=== PATIENT | female | born 1995 | race Hispanic/Latino ===

== ENCOUNTER 2025-04-10 10:43 | Outpatient (CLI) | payer OTHER, SELFPAY ==
--- OUTSIDE RECORDS SUMMARY | 2025-04-10 10:59 | XMS_ITS | Clinical Summary ---
Author Organization [facility] Address [address] [facility] [place] [address] Care Team Providers Care Mica Builder Name Role Phone Ramana Ponce Primary Care Provider Dany short Source Comments [facility],non-owned Affiliates and Associated Physician Practices is amultiple site organization consisting of ambulatory clinics and hospital sitesin [place], [place], [place] and [place]. This disclosure is being madepursuant to the Care Everywhere program and may not contain all information available regarding this patient. Last updated 18.[facility] Allergies No known active allergies Medications * Be aware that medications may not be up to date on this document. Alwaysverify current medications with the patient. No known medications Social History Tobacco Use Types Packs/Day Years Used Date Smoking Tobacco: Never Assessed Comments Unknown Sex and Gender Information Value Date Recorded Sex Assigned at Not on file Legal Sex Female 12:43 PM PATROL POLICE SERGEANT Gender Identity Not on file Sexual Orientation Not on file Last Filed Vital Signs Vital Sign Reading Time Taken Comments Blood Pressure 112/70 08/05/2011 9:59 AM PATROL POLICE SERGEANT Pulse 80 08/05/2011 9:59 AM PATROL POLICE SERGEANT Temperature - - Respiratory Rate 24 08/05/2011 9:59 AM PATROL POLICE SERGEANT Oxygen Saturation 100% 08/05/2011 9:59 AM PATROL POLICE SERGEANT Inhaled Oxygen Concentration - - Weight 61.8 kg (136 lb 3.9 oz) 08/05/2011 9:59 A M PATROL POLICE SERGEANT Height 152.5 cm (5' 0.04) 08/05/2011 9:59 AM CS T Body Mass Index 26.57 08/05/2011 9:59 AM PATROL POLICE SERGEANT Plan of Treatment Health Maintenance Due Date Last Done Comments HIV SCREENING 2011 HEPATITIS C SCREENING 08/24/2014 DTAP/TDAP/TD VACCINES (1 - Tdap) 2015 HEPATITIS B VACCINE (1 of 3 - 19+ 3-dose series) 2015 HPV VACCINE (1 - 3-dose SCDM series) 2023 COVID-19 VACCINE (1 - 2023-2 5 season) 2024 DEPRESSION SCREENING 09/27/2024 INFLUENZA VACCINE (#1) 2025 ZOSTER VACCINE (1 of 2) 2046 HIB VACCINE Aged Out No longer eligi ble based on patient's age to complete this topic MENINGOCOCCAL (Group B) VACC INE SHARED DECISION-MAKING Aged Out No longer eligibl e based on patient's age to complete this topic MENINGOCOCCAL GROUPS A/C/Y/W VACCINE Aged Out No longer eligible b ased on patient's age to complete this topic PNEUMOCOCCAL VACCINE Aged Out No long er eligible based on patient's age to complete this topic Care Teams Mica Builder Relationship Specialty Start Date End Date Ramana Ponce license in 2017 PCP - General 08/05/11
--- OUTSIDE RECORDS SUMMARY | 2025-04-10 10:59 | XMS_ITS | Referral Summary ---
Author Organization [facility] Address [address] [place] [id number] Care Team Providers Care Railroad Car Loader Name Role Phone Gabriella Collins NP Primary Care Provider [phone] Allergies No known active allergies Medications drospirenone-ethin yl estradioL (Susan, Obdulio,) 3-0.02 mg per tabletIndications: Encounter for initial prescription of contraceptive pills Take 1 tablet by mouth daily 84 tablet 4 4 Active Active Problems Problem Noted Date Diagnosed Date Sore throat 06/01/2024 Overview (06/01/2024): COVID and flu were negative. Stop antibiotics as strep is negative. Start prednisone taper. Have lab work completed. Throat culture collected BMI 28.0-28.9,adult 07/02/2022 Assessment & Plan (07/02/2022 3:56 PM CDT): Weight/BMI is in healthy range. Continue healthy lifestyle to maintain. Screening for STD (sexually transmitted disease) 07/02/2022 Flu vaccine need 07/02/2022 Abdominal pain 10/22/2021 Elevated LFTs 10/22/2021 Functional diarrhea 10/22/2021 Overview (10/22/2021): Take Cipro 500 mg twice daily as directed. Use referral to follow-up with Gastroenterology. Have lab work completed. We will notify you of the results Resolved Problems Problem Noted Date Diagnosed Date Resolved Date BMI 25.0-25.9,adult 10/22/2021 07/02/20 22 Immunizations Immunization Administration Dates Next Due DTaP 11/18/2000, 9,11/08/1997,03/12,01/10/1997 HPV, Quadrivalent 07/04/2007,02/28/2007,12/29/19 07 Hep A, Ped Unspecified 12/28/2006 Hep A, Unspecified 03/02/2008 Hep B, Adolescent or Pediatric 05/16/2004,2003 Hep B, Unspecified 01/25/2004 IPV 11/23/1997, 8,03/12/1997,01/10 Influenza, Quadrivalent, Spl it, Preservative Free, Intramuscular 07/02/2022,07/06/2013 Influenza, Unspecified 01/25/2024(Deferr ed: Patient Refused),10/05/2023(Deferred: Patient Refused),09/28/2023(Deferred: Patient Refused),09/27/2023(Deferred: Patient Refused),09/27/2022(Deferred: Patient Refused),09/27/2022(Deferred: Patient Refused),09/27/2022(Deferred: Patient Refused),10/22/2021(Deferred: Patient Refused) MMR 11/28/2003,07/26/2003 Meningococcal C Conjugate 02/28/2007 Meningococcal MCV4P (Menactra) 07/06/2013 Pfizer SARS-CoV-2 Monovalent Vaccination (12+ Yrs) PURPLE 11/06/2020,10/16/2020 Polio, Unspecified 02/20/1998 Tdap 02/28/2007 Varicella 12/25/2003 Social History Tobacco Use Types Packs/Day Years Used Date Smoking Tobacco: Never Smokeless Tobacco: Never Tobacco Cessation:Counseling Given: Not Answered AUDIT-C Answer Date Recorded Q1: How often do you have a drink containing alc ohol? Never 11/26/2021 Average Number of Drinks Not on file 022 Q3: How often do you have si x or more drinks on one occasion? Never 11/26/2021 PHQ-2 Answer Date Recorded PHQ-2 Total Score (If total score is 3 or more points, staff should administer the PHQ-9) 0 06/01/2024 Comments Unknown Sex and Gender Information Value Date Recorded Sex Assigned at Not on file Legal Sex Female 3:02 PM CDT Gender Identity Female 10/20/2021 1:14 PM SPOOL CLEANER HAND Sexual Orientation Straight 10/20/2021 1: 14 PM SPOOL CLEANER HAND Last Filed Vital Signs Vital Sign Reading Time Taken Comments Blood Pressure 102/80 05/30/2024 9:15 AM CDT Pulse 97 06/01/2024 10:39 AM CDT Temperature 37.6 C (99.6 F) 06/01/2024 10:39 AM CDT after motrin and tylenol Respiratory Rate 18 11/26/2021 4:09 PM SPOOL CLEANER HAND Oxygen Saturation 98% 06/01/2024 10: 39 AM CDT Inhaled Oxygen Concentration - - Weight 65.8 kg (145 lb) 06/01/2024 10:3 9 AM CDT Height 152.4 cm (5') 06/01/2024 10:39 AM CDT Body Mass Index 28.32 06/01/2024 10:39 AM CDT Plan of Treatment Not on file Procedures Procedure Name Priority Date/Time Associated Diagnosis Comments HEPATITIS PANEL, ACUTE Routine 06/01/2024 12:21 PM CDT Screening for STD (sexually transmitted disease) PAP, REFLEX HPV Routine 09/28/2023 8:46 AM SPOOL CLEANER HAND Encounter for well woman exam with routine gynecological exam from Last 3 Months or Most Recently Relevant to Health Maintenance Results * Hepatitis panel, acute Blood (06/01/2024 12:21 PM CDT) Hep A IgM NON-REACTI VE NON-REACT [facility] Comment: For additional information, please refer to http://education.HomeShop18.[employer]/faq/ETJ411 (This link is being provided for informational/ educational purposes only.) HepBsAg NON-REACTI VE NON-REACT [facility] Comment: For additional information, please refer to http://education.Home[employer]/faq/GPE723 (This link is being provided for informational/ educational purposes only.) Hep B core IgM NON-REACTI VE NON-REACT [facility] Comment: For additional information, please refer to http://education.Newlans/faq/CTC197 (This link is being provided for informational/ educational purposes only.) Hep C Ab NON-REACTI VE NON-REACT [facility] Comment: HCV antibody was non-reactive. There is no laboratory evidence of HCV infection. In most cases, no further action is required. However, if recent HCV exposure is suspected, a test for HCV RNA (test code 74845) is suggested. For additional information please refer to http://Vigoda.[employer]/faq/GKN27i8 (This link is being provided for informational/ educational purposes only.) Blood 06/01/2024 12:2 1 PM CDT 06/01/2024 12:24 PM CDT Narrative [facility] - 06/05/2024 10:48 AM CDT FASTING:NO FASTING: NO Gabriella Collins WORKERS' COMPENSATION MAGISTRATE LAB MICROBIOLOGY - GENERAL OR DERABLES Final Result [facility] [address] [place] [address] * Pap, reflex HPV (09/28/2023 8:46 AM SPOOL CLEANER HAND) CLINICAL INFORMATION: Wilda Williamson Comment:CERVICAL CANCER SCRE ENING LMP Wilda Williamson Comment:09/17/23 Previous Pap Wilda Williamson Comment:09/17/2023 Prev. Bx Wilda Williamson Comment:NONE GIVEN SOURCE: Wilda Williamson Comment:Cervix, Endocervix Pap, specimen adequacy Wilda Williamson Comment: Satisfactory for evaluation. Endocervical/transformation zone component absent. HPV interp Wilda Williamson Comment: Cytology Results: Negative for intraepithelial lesion or malignancy. COMMENTS Wilda Williamson Comment: This Pap test has been evaluated with computer assisted technology. Dust Collector Attendant Korey Gonzalez Comment: PCM, CT(ASCP) CT Screening Location: [facility] Administration DENISHA [facility] Review policy director Wilda Williamson Comment: GAYE BAPTISTE(ASCP) CT Screening location: [place] [address] [address] [place] [address] Comment Wilda Williamson Comment: EXPLANATORY NOTE: The Pap is a screening test for cervical cancer. It is not a diagnostic test and is subject to false negative and false positive results. It is most reliable when a satisfactory sample, regularly obtained, is submitted with relevant clinical findings and history, and when the Pap result is evaluated along with historic and current clinical information. Thin prep 09/28/2023 8:46 AM SPOOL CLEANER HAND 09/29/2023 6:21 AM SPOOL CLEANER HAND us Gabriella Collins NP LAB CYTOLOGY ORDERABLES Final Result [facility] [address] [address] [place] [place] [phone] from Last 3 Months or Most Recently Relevant to Health Maintenance Insurance * Guarantor: Radha Whyte Account Type Relation to Patient Date of Phone Billing Address Personal/Family Self 1995 [address] [place] [address] [facility] * Guarantor: Radha Whyte Account Type Relation to Patient Date of Phone Billing Address Personal/Family Self 1995 [address] [place] [address] [facility] Care Teams Railroad Car Loader Relationship Specialty Start Date End Date Gabriella Collins NP PCP - General Internal Medicine 10/17/21
--- OUTSIDE RECORDS SUMMARY | 2025-04-10 10:59 | XMS_ITS | Continuity of Care Document ---
Author Organization [facility] Address [address] [place] [address] Phone Care Team Providers Care Crusher And Binder Operator Name Role Phone Rudy Vargas MD Unavailable Unavailable Allergies, Adverse Reactions, Alerts Substance Reaction Status Criticality No Known Allergies Active No Inform ation Medications Medication Instructions Dosage Effective Dates (start - stop) Status Comments terbinafine HCl 250 mg tablet take 1 tablet by oral route every day 250 MG - Active Procedures Procedure Date OFFICE/OUTPATIENT VISIT, [facility] PREV VISIT, [facility], AGE 18-39 OFFICE/OUTPATIENT VISIT, [facility] Advance Directives Directive Yes / No Effective Date File Name No Information Encounters Encounter Description Practice Location Reason(s) For Visit Diagnoses Date Provider Providers Copied on Encounter OFFICE/OUTPA TIENT VISIT, [facility], [address] [place] [place], [id number], [place] tel:[phone] [facility] nail fungus1 (chief complaint) hemautria1 (chief complaint) wbc (chief complaint) ear pain (chief complaint) insomnia1 (chief complaint) Dermatophytic onychiaLeukocytosis HematuriaFatiguePar esthesia of skin [address] [facility] [facility] [place], [id number] , [place]. tel:[phone] Referring Provider: Rudy Vargas [address] [facility] [place], [place], [id number]. tel:[phone] PREV VISIT, NEW, AGE 18-39 [facility], [address] [place], [id number], tel:[phone] [facility] Family Medicine Physical (chief complaint) Encounter for general adult medical exam w abnormal findingsParesthesia of skinFatigueDermatop hytic onychia [address]. [address], [place], [place], [id number] , [place]. tel:[phone] Referring Provider: Rudy Vargas [address], [place], [place], [id number]. tel:[phone] Family History Family Member Type Diagnosis Age At Onset Father Problem (finding) Alive and well Mother Problem (finding) Diabetes mellitus type 2 Brother Problem (finding) Alive and well Payers Payer name Insurance type Covered democrat ID Authoriza tion(s) No Information Social History Type Description Quantity Date Captured Comments Alcohol Use Details No Caffeine Use Details Unknown Tobacco Use Status Current non-smoker 19 Smoking Status Never smoker Non-Smoking Tobacco Use Details : No Details Available : No Details Available Sex Female Vital Signs Date / Time: Height Weight BMI Pulse Rate Blood Pressure Temperature Respiratory Rate Body Surface Area Head Circumference BMI percentile Pulse Ox Inhaled Ox 10:17 AM 61.00 in 174.20 lbs 32.9 1 kg/m eter (2) 43 /min 133/71 mm[Hg] 96.2 F 16 /min Chief Complaint And Reason For Visit From encounter dated '06/09/2019 10:15'. nail fungus1 (chief complaint). Description: Pt has left big toenail fungus for years. Pt denies any toe pain pt wants to be treated hemautria1 (chief complaint). Description: Pt has mild hematuria. Pt denies any UTI symptoms wbc (chief complaint). Description: Pt has mildly high WBC. Pt denies any recurrent fever or infection ear pain (chief complaint). Description: Additional information: Pt just returned from trip and shedid flew. Pt notices popping both ears with some sinus pressure Pt denies harin gloss. insomnia1 (chief complaint). Description: Pt states that insomnia and lower extremity paresthesia resolved. Pt did not try vistaril Plan Of Treatment Date Type Action Status Goal Special diet education compl eted Goal Special diet education compl eted History Of Present Illness Encounter Date Complaint History Of Prese nt Illness ear pain Additional infor mation: Pt just returned from trip and she did flew. Pt notices popping both ears with some sinus pressure Pt denies harin gloss. insomnia1 Pt states that i nsomnia and lower extremity paresthesia resolved. Pt did not try vistaril wbc Pt has mildly hi gh WBC. Pt denies any recurrent fever or infection hemautria1 Pt has mild abbe turia. Pt denies any UTI symptoms nail fungus1 Pt has left big toenail fungus for years. Pt denies any toe pain pt wants to be treated Physical Pt needs annual physical. Pt c/o bilateral calf and feet tingling and numbness for 2 weeks. Pt denies any burning Pt denies any pain pt denies any back pain or any sciatica or any loss of bladder control. Pt denies any polyuria, polyuria. Pt feels very fatigue for 2-3 months, pt has severe insomnia x 2-3 months Pt denies any snoring or any trouble with breathing at night. Pt denies any morning fatigue. Pt just feels around mid of the day and she feels that she can fall asleep easily during the day, Pt denies any sob. Pt states that numbness both calf and lower extremity occurs randomly Instructions Date Instruction Additional Infor mation Special diet education Related t o Body mass index (BMI) 32.0-32.9, adult Increase physical activity Relat ed to Leukocytosis Weight management Related to Loraine kocytosis Special diet education Related t o Body mass index (BMI) 31.0-31.9, adult Assessments Type Assessment Date assessment Dermatophytic onychia 9 assessment Leukocytosis assessment Hematuria assessment Fatigue assessment Paresthesia of skin Mental Status Date Cognitive Assessment Orientation - [place] ed to time, place, person, situation.
--- OUTSIDE RECORDS SUMMARY | 2025-04-10 10:59 | XMS_ITS | Clinical Summary ---
Author Organization [facility] Address [address] [place] [phone] Care Team Providers Care Market Development Manager Name Role Phone Gabriella Collins NP Primary Care Provider [phone] Allergies No known active allergies Medications drospirenone-ethin [...] Polio, Unspecified 02/20/1998 Tdap 02/28/2007 Varicella 12/25/2003 Surgical History Surgery Date Site/Laterality Comments STOMACH SURGERY gastric sleeve in January 2021 in [place]. Family History Medical History Relation Name Comments Diabetes Maternal Grandmother Diabetes Mother Relation Name Status Comments Father Alive Maternal Grandmother Alive Mother Alive Social History Tobacco Use Types Packs/Day Years [...] CDT Gender Identity Female 10/20/2021 1:14 PM GROUP DYNAMICS INSTRUCTOR Sexual Orientation Straight 10/20/2021 1: 14 PM GROUP DYNAMICS INSTRUCTOR Obstetrics History Last Filed Vital Signs Vital Sign Reading Time Taken Comments Blood Pressure 102/80 05/30/2024 9:15 AM CDT Pulse 97 06/01/2024 10:39 AM CDT Temperature 37.6 C (99.6 F) 06/01/2024 10:39 AM CDT after motrin and tylenol Respiratory Rate 18 11/26/2021 4:09 PM GROUP DYNAMICS INSTRUCTOR Oxygen Saturation 98% 06/01/2024 10: 39 AM CDT Inhaled Oxygen Concentration - - Weight 65.8 kg (145 lb) 06/01/2024 10:3 9 AM CDT Height 152.4 cm (5') 06/01/2024 10:39 AM CDT Body Mass Index 28.32 06/01/2024 10:39 AM CDT Plan of Treatment Health Maintenance Due Date Last Done Comments Varicella Vaccines (2 of 2 - 2-dose childhood series) 03/18/2004 12/25/2003 DTaP/Tdap/Td Vaccine (7 - Td or Tdap) 02/28/2017 02/28/2007, 11/18/2000, 04/01/1999, Additional history exists Covid-19 Vaccine ( season) 2024 11/06/2020, 10/16/2020 Cervical Cancer Screening 09/28/2024 09/28/2023 Regular Well Visit/Exam 18-64 10/05/2024 10/05/2023, 09/28/2023, 07/02/2022 Influenza Vaccine (Season Ended) 2025 07/02/2022, 07/06/2013 Depression Screening 06/01/2025 06/01/2024, 05/30/2024, 01/25/2024, Additional history exists Hepatitis B Screening Completed 05/16/2004 , 01/25/2004, 11/28/2003 HPV Vaccines Completed 07/04/2007, 12/2006, 12/28/2006 Hepatitis C Screening Completed 06/01/2024, 022 Pneumococcal vaccine <65 Aged Out No longer eligible based on patient's age to complete this topic Procedures Procedure Name Priority Date/Time Associated Diagnosis Comments HEPATITIS PANEL, ACUTE Routine 06/01/2024 12:21 PM CDT Screening for STD (sexually transmitted disease) PAP, REFLEX HPV Routine 09/28/2023 8:46 AM GROUP DYNAMICS INSTRUCTOR Encounter for well woman exam with routine gynecological exam from Last 3 Months or Most Recently Relevant to Health Maintenance Results * Hepatitis panel, acute Blood (06/01/2024 12:21 PM CDT) Hep A IgM NON-REACTI VE NON-REACT [facility] Comment: For additional information, please refer to http://[employer]/faq/TEV895 (This link is being provided for informational/ educational purposes only.) HepBsAg NON-REACTI VE NON-REACT [facility] Comment: For additional information, please refer to http://[employer]/faq/KRC165 (This link is being provided for informational/ educational purposes only.) Hep B core IgM NON-REACTI VE NON-REACT [facility] Comment: For additional information, please refer to http://[employer]/faq/YFP512 (This link is being provided for informational/ educational purposes only.) Hep C Ab NON-REACTI VE NON-REACT [facility] Comment: HCV antibody was non-reactive. There is no laboratory evidence of HCV infection. In most cases, no further action is required. However, if recent HCV exposure is suspected, a test for HCV RNA (test code 66143) is suggested. For additional information please refer to http://[employer]/faq/XKI86k5 (This link is being provided for informational/ educational purposes only.) Blood 06/01/2024 12:2 1 PM CDT 06/01/2024 12:24 PM CDT Narrative [facility] - 06/05/2024 10:48 AM CDT FASTING:NO FASTING: NO Gabriella Collins PIPE OUT WORKER LAB MICROBIOLOGY - GENERAL OR DERABLES Final Result [facility] [address] [phone] * Pap, reflex HPV (09/28/2023 8:46 AM GROUP DYNAMICS INSTRUCTOR) CLINICAL INFORMATION: Wilda Williamson Comment:CERVICAL CANCER SCRE [...] has been evaluated with computer assisted technology. Pmo Manager Korey Gonzalez Comment: PCM, CT(ASCP) CT Screening Location: [place] [address] [place] [address] Review straightedge man Wilda Williamson Comment: KMS, CT(ASCP) CT Screening location: [place] [address] [address] [place] [facility] Comment Wilda Williamson Comment: EXPLANATORY NOTE: The [...] clinical information. Thin prep 09/28/2023 8:46 AM GROUP DYNAMICS INSTRUCTOR 09/29/2023 6:21 AM GROUP DYNAMICS INSTRUCTOR Gabriella Collins PIPE OUT WORKER LAB CYTOLOGY ORDERABLES Final Result [facility] [address] [place] [address] from Last 3 Months or Most Recently Relevant to Health Maintenance Insurance [facility] Care Teams Market Development Manager Relationship Specialty Start Date End Date Gabriella Collins NP PCP - General Internal Medicine 10/17/21
[2025-04-10 11:45] LABS: Hematocrit 33.3 % (37.0-47.0); Hemoglobin 9.9 g/dL (12.0-15.0); Immature Granulocyte Percent A 0.2 % (0-0.5); Lymphocytes Absolute Auto 2.76 K/mm3 (0.9-3.2); Mean Corpuscular HGB Conc 29.7 g/dl (32-36); Mean Corpuscular Hemoglobin 22.7 pg (26-34); Mean Corpuscular Volume 76.2 fl (80-100); Nucleated Red Blood Cells Absolute Auto 0.000 K/mm3 (0.0-0.012); Nucleated Red Blood Cells Perc 0.0 % (0.0-0.2); Platelet Count Result 457 k/mm3 (150-375); Red Blood Count 4.37 M/mm3 (4.2-5.4); White Blood Count 6.2 K/mm3 (4.5-10.0)
[2025-04-10 12:09] LABS: Anisocytosis 1+; Hypochromasia 1+; Ovalocytes 1+
[2025-04-10 12:10] LABS: Schistocytes None Seen
[2025-04-10 12:13] LABS: Alanine Aminotransferase 59 U/L (6-35); Albumin Level 4.4 g/dL (3.5-5.1); Alkaline Phosphatase 84 U/L (38-126); Anion Gap 9 mmol/L (4-12); Aspartate Amino Transferase 55 U/L (14-36); Bilirubin,Total 0.6 mg/dL (0.2-1.3); Blood Urea Nitrogen 10 mg/dL (7-17); Calcium 9.5 mg/dL (8.4-10.2); Carbon Dioxide 26 mmol/L (22-30); Chloride 102 mmol/L (98-107); Cholesterol 190 mg/dL (0-200); Estimated Glomerular Filt Rate > 60; Glucose 81 mg/dL (65-110); HDL Direct 49 mg/dL; Magnesium 2.1 mg/dL (1.6-2.3); Potassium 3.9 mmol/L (3.4-5.0); Sodium 137 mmol/L (137-145); Total Protein 8.1 g/dL (6.3-8.2); Triglycerides 75 mg/dL (<150)
[2025-04-10 12:58] LABS: Thyroid Stimulating Hormone 1.590 uIU/mL (0.465-4.680)
[2025-04-10 13:33] LABS: Vitamin B12 394.0 pg/mL (239-931)
== END 2025-04-10 10:44 | disposition home or self-care (01) ==
PROVIDERS: PCP Nurse Practitioner Adult Health; Visit Provider Nurse Practitioner Adult Health
DX: Z00.00 Encounter for general adult medical examination without abnormal findings (principal); R53.83 Other fatigue; Z90.3 Acquired absence of stomach [part of]
CPT/HCPCS: 36415; 80053; 80061; 82306; 82607; 82746; 83735; 84443; 85025

== ENCOUNTER 2025-04-11 16:52 | Outpatient (CLI) | payer OTHER, SELFPAY ==
--- OUTSIDE RECORDS SUMMARY | 2025-04-11 16:54 | XMS_ITS | Clinical Summary ---
Author Organization [facility] Address [address] [place] [address] Care Team Providers Care Fundraising Officer Name Role Phone Ramana Ponce Primary Care Provider Dany short Source Comments [facility],non-owned Affiliates and Associated Physician Practices is amultiple site organization consisting of ambulatory clinics and hospital sitesin [place], [place], [place] and [place]. This disclosure is being madepursuant to the Care Everywhere program and may not contain all information available regarding this patient. Last updated 18.[facility] Allergies No known active allergies Medications * Be aware that medications may not be up to date on this document. Alwaysverify current medications with the patient. No known medications Social History Tobacco Use Types Packs/Day Years Used Date Smoking Tobacco: Never Assessed Comments Unknown Sex and Gender Information Value Date Recorded Sex Assigned at Not on file Legal Sex Female 12:43 PM BUILDING ARCHITECTURAL DESIGNER Gender Identity Not on file Sexual Orientation Not on file Last Filed Vital Signs Vital Sign Reading Time Taken Comments Blood Pressure 112/70 08/05/2011 9:59 AM BUILDING ARCHITECTURAL DESIGNER Pulse 80 08/05/2011 9:59 AM BUILDING ARCHITECTURAL DESIGNER Temperature - - Respiratory Rate 24 08/05/2011 9:59 AM BUILDING ARCHITECTURAL DESIGNER Oxygen Saturation 100% 08/05/2011 9:59 AM BUILDING ARCHITECTURAL DESIGNER Inhaled Oxygen Concentration - - Weight 61.8 kg (136 lb 3.9 oz) 08/05/2011 9:59 A M BUILDING ARCHITECTURAL DESIGNER Height 152.5 cm (5' 0.04) 08/05/2011 9:59 AM CS T Body Mass Index 26.57 08/05/2011 9:59 AM BUILDING ARCHITECTURAL DESIGNER Plan of Treatment Health Maintenance Due Date [...] age to complete this topic Care Teams Fundraising Officer Relationship Specialty Start Date End Date Ramana Ponce license in 2017 PCP - General 08/05/11
--- OUTSIDE RECORDS SUMMARY | 2025-04-11 16:54 | XMS_ITS | Referral Summary ---
Author Organization [facility] Address [address] [place] [id number] Care Team Providers Care Cut Off Operator Scorer Name Role Phone Gabriella Collins NP Primary Care Provider [phone] Allergies No known active allergies Medications drospirenone-ethin [...] CDT Gender Identity Female 10/20/2021 1:14 PM DIRECTOR OF CARDIAC REHABILITATION Sexual Orientation Straight 10/20/2021 1: 14 PM DIRECTOR OF CARDIAC REHABILITATION Last Filed Vital Signs Vital Sign Reading Time Taken Comments Blood Pressure 102/80 05/30/2024 9:15 AM CDT Pulse 97 06/01/2024 10:39 AM CDT Temperature 37.6 C (99.6 F) 06/01/2024 10:39 AM CDT after motrin and tylenol Respiratory Rate 18 11/26/2021 4:09 PM DIRECTOR OF CARDIAC REHABILITATION Oxygen Saturation 98% 06/01/2024 10: 39 AM [...] PAP, REFLEX HPV Routine 09/28/2023 8:46 AM DIRECTOR OF CARDIAC REHABILITATION Encounter for well woman exam with routine gynecological exam from Last 3 Months or Most Recently Relevant to Health Maintenance Results * Hepatitis panel, acute Blood (06/01/2024 12:21 PM CDT) Hep A IgM NON-REACTI VE NON-REACT [facility] Comment: For additional information, please refer to http://education.OncoEthix.Syncplicity/faq/KAI525 (This link is being provided for informational/ educational purposes only.) HepBsAg NON-REACTI VE NON-REACT [facility] Comment: For additional information, please refer to http://education.OncoEthix.Syncplicity/faq/WIP059 (This link is being provided for informational/ educational purposes only.) Hep B core IgM NON-REACTI VE NON-REACT [facility] Comment: For additional information, please refer to http://education.Geneix/faq/VLM033 (This link is being provided for informational/ educational purposes only.) Hep C Ab NON-REACTI VE NON-REACT [facility] Comment: HCV antibody was non-reactive. There is no laboratory evidence of HCV infection. In most cases, no further action is required. However, if recent HCV exposure is suspected, a test for HCV RNA (test code 71562) is suggested. For additional information please refer to http://DeviceFidelity.Geneix/faq/ZAO34h2 (This link is being provided for informational/ educational purposes only.) Blood 06/01/2024 12:2 1 PM CDT 06/01/2024 12:24 PM CDT Narrative [facility] - 06/05/2024 10:48 AM CDT FASTING:NO FASTING: NO Gabriella Collins TECHNOLOGY SALES REPRESENTATIVE LAB MICROBIOLOGY - GENERAL OR DERABLES Final Result [facility] [employer] [address] [place] [address] * Pap, reflex HPV (09/28/2023 8:46 AM DIRECTOR OF CARDIAC REHABILITATION) CLINICAL INFORMATION: Wilda Williamson Comment:CERVICAL CANCER SCRE [...] has been evaluated with computer assisted technology. Middleware Solutions Architect Korey Gonzalez Comment: PCM, CT(ASCP) CT Screening Location: [facility] Administration [facility] Review technical sales director Wilda Williamson Comment: GAYE BAPTISTE(ASCP) CT Screening location: [place] [address] [address] DENISHA Chandler [address] Comment Wilda Williamson Comment: EXPLANATORY NOTE: The [...] clinical information. Thin prep 09/28/2023 8:46 AM DIRECTOR OF CARDIAC REHABILITATION 09/29/2023 6:21 AM DIRECTOR OF CARDIAC REHABILITATION us Gabriella Collins NP LAB CYTOLOGY ORDERABLES Final Result [facility] [address] [address] [place] [phone] from Last 3 Months or Most Recently Relevant to Health Maintenance Insurance * Guarantor: Radha Whyte Account Type Relation to Patient Date of Phone Billing Address Personal/Family Self 1995 [address] [place] [address] [facility] * Guarantor: Radha Whyte Account Type Relation to Patient Date of Phone Billing Address Personal/Family Self 1995 [address] [place] [address] [facility] Care Teams Cut Off Operator Scorer Relationship Specialty Start Date End Date Gabriella Collins NP PCP - General Internal Medicine 10/17/21
--- OUTSIDE RECORDS SUMMARY | 2025-04-11 16:54 | XMS_ITS | Clinical Summary ---
Author Organization [facility] Address [address] [place] [address] Care Team Providers Care Facilities Maintenance Supervisor Name Role Phone Unavailable Primary Care Provider Unavailabl e Social History Tobacco Use Types Packs/Day Years Used Date Smoking Tobacco: Never Assessed Comments Unknown Sex and Gender Information Value Date Recorded Sex Assigned at Not on file Legal Sex Female 4:13 PM CDT Gender Identity Not on file Sexual Orientation Not on file Plan of Treatment Health Maintenance Due Date Last Done Comments Cervical Cancer Screening Pa p Smear (Age 21 to 29) Every 3 Years 1996 Cervical Cancer Screening 1996 Annual Physical 1999 Hepatitis C 2014 DTaP, Tdap and Td Vaccines ( 1 - Tdap) 2015 Hepatitis B Vaccines (1 of 3 - 19+ 3-dose series) 2015 COVID-19 Vaccine (2023-2 5 season) 2024 HPV Vaccines Aged Out No longer eligi ble based on patient's age to complete this topic Meningococcal B Vaccine Aged Out No l onger eligible based on patient's age to complete this topic Meningococcal Vaccine Aged Out No roland nathalia eligible based on patient's age to complete this topic Pneumococcal Vaccine: Pediat rics (0 to 5 Years) and At-Risk Patients (6 to 49 Years) Aged Out No longer eligible b ased on patient's age to complete this topic RSV Immunizations Under 20 Months Aged Out No longer eligible based on patient's age to complete this topic
--- OUTSIDE RECORDS SUMMARY | 2025-04-11 16:54 | XMS_ITS | Continuity of Care Document ---
Author Organization [facility] Address [address] [place] [address] Phone Care Team Providers Care Caregiver Assisted Living Name Role Phone Rudy Vargas MD Unavailable Unavailable Allergies, Adverse Reactions, Alerts Substance Reaction Status Criticality No Known Allergies Active No Inform ation Medications Medication Instructions Dosage Effective Dates (start - stop) Status Comments terbinafine HCl 250 mg tablet take 1 tablet by oral route every day 250 MG - Active Procedures Procedure Date OFFICE/OUTPATIENT VISIT, [facility] PREV VISIT, [facility], AGE 18-39 OFFICE/OUTPATIENT VISIT, [facility] Advance Directives Directive Yes / No Effective Date File Name No Information Encounters Encounter Description Practice Location Reason(s) For Visit Diagnoses Date Provider Providers Copied on Encounter OFFICE/OUTPA TIENT VISIT, [facility], [address] [place], [place], [id number], [place] tel:[phone] [facility] nail fungus1 (chief complaint) hemautria1 (chief complaint) wbc (chief complaint) ear pain (chief complaint) insomnia1 (chief complaint) Dermatophytic onychiaLeukocytosis HematuriaFatiguePar esthesia of skin [address] [facility] [place], [id number] , [place]. tel:[phone] Referring Provider: Rudy Vargas [address] [facility] [place], [id number]. tel:[phone] PREV VISIT, NEW, AGE 18-39 [facility], [address] [place], [id number], tel:[phone] [facility] Family Medicine Physical (chief complaint) Encounter for general adult medical exam w abnormal findingsParesthesia of skinFatigueDermatop hytic onychia [address]. [address], [place], [place], [id number] , [place]. tel:[phone] Referring Provider: Rudy Vargas [address], [place], [place], [id number]. tel:[phone] Family History Family Member Type Diagnosis Age At Onset Father Problem (finding) Alive and well Mother Problem (finding) Diabetes mellitus type 2 Brother Problem (finding) Alive and well Payers Payer name Insurance type Covered green party ID Authoriza tion(s) No Information Social History [...] Date Complaint History Of Prese nt Illness nail fungus1 Pt has left big toenail fungus for years. Pt denies any toe pain pt wants to be treated hemautria1 Pt has mild abbe turia. Pt denies any UTI symptoms wbc Pt has mildly hi gh WBC. Pt denies any recurrent fever or infection insomnia1 Pt states that i nsomnia and lower extremity paresthesia resolved. Pt did not try vistaril ear pain Additional infor mation: Pt just returned from trip and she did flew. Pt notices popping both ears with some sinus pressure Pt denies harin gloss. Physical Pt needs annual physical. Pt c/o [...] Mental Status Date Cognitive Assessment Orientation - [place] ed to time, place, person, situation.
--- OUTSIDE RECORDS SUMMARY | 2025-04-11 16:54 | XMS_ITS | Clinical Summary ---
Author Organization [facility] Address [address] [place] [address] Care Team Providers Care Equipment Sterilizer Name Role Phone Gabriella Collins NP Primary Care Provider [phone] Allergies No known active allergies Medications drospirenone-ethin [...] SURGERY gastric sleeve in January 2021 in [place]. Family History Medical History Relation Name Comments [...] CDT Gender Identity Female 10/20/2021 1:14 PM LICENSED INVESTMENT SALES ASSISTANT Sexual Orientation Straight 10/20/2021 1: 14 PM LICENSED INVESTMENT SALES ASSISTANT Obstetrics History Last Filed Vital Signs Vital Sign Reading Time Taken Comments Blood Pressure 102/80 05/30/2024 9:15 AM CDT Pulse 97 06/01/2024 10:39 AM CDT Temperature 37.6 C (99.6 F) 06/01/2024 10:39 AM CDT after motrin and tylenol Respiratory Rate 18 11/26/2021 4:09 PM LICENSED INVESTMENT SALES ASSISTANT Oxygen Saturation 98% 06/01/2024 10: 39 AM [...] PAP, REFLEX HPV Routine 09/28/2023 8:46 AM LICENSED INVESTMENT SALES ASSISTANT Encounter for well woman exam with routine gynecological exam from Last 3 Months or Most Recently Relevant to Health Maintenance Results * Hepatitis panel, acute Blood (06/01/2024 12:21 PM CDT) Hep A IgM NON-REACTI VE NON-REACT [facility] Comment: For additional information, please refer to http://ideeli/faq/MMO979 (This link is being provided for informational/ educational purposes only.) HepBsAg NON-REACTI VE NON-REACT [facility] Comment: For additional information, please refer to http://ideeli/faq/WDO257 (This link is being provided for informational/ educational purposes only.) Hep B core IgM NON-REACTI VE NON-REACT [facility] Comment: For additional information, please refer to http://ideeli/faq/YNB866 (This link is being provided for informational/ educational purposes only.) Hep C Ab NON-REACTI VE NON-REACT [facility] Comment: HCV antibody was non-reactive. There is no laboratory evidence of HCV infection. In most cases, no further action is required. However, if recent HCV exposure is suspected, a test for HCV RNA (test code 43272) is suggested. For additional information please refer to http://ideeli/faq/OYO00a9 (This link is being provided for informational/ educational purposes only.) Blood 06/01/2024 12:2 1 PM CDT 06/01/2024 12:24 PM CDT Narrative [facility] - 06/05/2024 10:48 AM CDT FASTING:NO FASTING: NO Gabriella Collins [employer] LAB MICROBIOLOGY - GENERAL OR DERABLES Final Result [facility] [employer] [address] [address] [id number] * Pap, reflex HPV (09/28/2023 8:46 AM LICENSED INVESTMENT SALES ASSISTANT) CLINICAL INFORMATION: Wilda Williamson Comment:CERVICAL CANCER SCRE [...] has been evaluated with computer assisted technology. Technical Sme Korey Gonzalez Comment: PCM, CT(ASCP) CT Screening Location: [place] [address] [place] [address] Review award clerk Wilda Williamson Comment: KMS, CT(ASCP) CT Screening location: [place] [address] [address] [facility] Comment Wilda Williamson Comment: EXPLANATORY NOTE: The [...] clinical information. Thin prep 09/28/2023 8:46 AM LICENSED INVESTMENT SALES ASSISTANT 09/29/2023 6:21 AM LICENSED INVESTMENT SALES ASSISTANT Gabriella Collins [facility] [facility] LAB CYTOLOGY ORDERABLES Final Result [facility] [address] [place] [phone] from Last 3 Months or Most Recently Relevant to Health Maintenance Insurance [facility] Care Teams Equipment Sterilizer Relationship Specialty Start Date End Date Gabriella Collins NP PCP - General Internal Medicine 10/17/21
[2025-04-11 17:28] LABS: Iron 30 ug/dL (37-170)
[2025-04-11 17:37] LABS: Percent Iron Saturation 6 % (20-50)
[2025-04-11 18:09] LABS: Ferritin 4.24 ng/mL (6.24-137)
== END 2025-04-11 16:53 | disposition home or self-care (01) ==
PROVIDERS: PCP Nurse Practitioner Adult Health; Visit Provider Nurse Practitioner Adult Health
DX: D64.9 Anemia, unspecified (principal)
CPT/HCPCS: 36415; 82728; 83540; 83550